=== PATIENT | female | born 1970 | race Caucasian/White ===

== ENCOUNTER → 2017-10-11 | Outpatient (CLI) | payer OTHER ==
[~2017-10-11] MED LIST: FLUO40CA2 PO; GADOBUTROL 10 MMOL/10 ML PFS ONE; [UNRECOGNIZED DRUG - OTHER] PO
== END | disposition home or self-care (01) ==
LOC: CFH 07:48
PROVIDERS: ATTEND Registered Nurse
DX: G35 Multiple sclerosis (principal); R53.1 Weakness; R20.0 Anesthesia of skin; R90.82 White matter disease, unspecified
CPT/HCPCS: 70553; 72156; 72157; A9585

== ENCOUNTER → 2020-10-19 | Outpatient (CLI) | payer MEDICARE ==
[~2020-10-19] MED LIST changes: +ALPR1TAB2 PO; -GADOBUTROL 10 MMOL/10 ML PFS ONE; +GADOTERATE 10 MMOL/20ML SYR ONE
== END | disposition home or self-care (01) ==
LOC: CFH 13:24
PROVIDERS: ATTEND Nurse Practitioner Family
DX: G95.89 Other specified diseases of spinal cord (principal); G35 Multiple sclerosis; R90.89 Other abnormal findings on diagnostic imaging of central nervous system
CPT/HCPCS: 70553; 72156; 72157; A9575